=== PATIENT | female | born 1970 | race Caucasian/White ===

== ENCOUNTER → 2019-08-28 | Outpatient (CLI) | payer BC | END | disposition home or self-care (01) | LOC: LABWHC1 13:24 | PROVIDERS: ATTEND Emergency Medicine | DX: Z20.828 Contact with and (suspected) exposure to other viral communicable diseases (principal) | CPT/HCPCS: U0003; C9803 ==

== ENCOUNTER → 2021-11-22 | Outpatient (CLI) | payer BC ==
--- NOTE | 2021-11-23 18:58 | MM ---
Reason for Exam: Screening (asymptomatic). Last mammogram was performed 6 year(s) and 0 month(s) ago. Patient History: Menarche at age 11. First Full-Term at age 20. Left ovary removed at age 32. Right ovary removed at age 32. Hysterectomy at age 32. Postmenopausal. Other cancer, age 21. Estrogen for 3 months from age 32 until age 32. Risk Values: Silvana 5 year model risk: 0.9%. NCI Lifetime model risk: 7.8%. Prior Study Comparison: 12/07/2006 Bilateral Screening Mammogram, [facility]. 11/24/2015 Bilateral Screening Mammogram, [facility]. Tissue Density: There are scattered fibroglandular densities. Findings: Analyzed By CAD. There is no suspicious group of microcalcifications or new suspicious mass in either breast. Overall Assessment: Negative, BI-RAD 1 Management: Screening Mammogram of both breasts in 1 year. 1. Patient should continue monthly self breast exams. 2. A clinical breast exam by your physician is recommended on an annual basis. 3. This exam should not preclude additional follow-up of suspicious palpable abnormalities. Electronically signed and approved by: Gene Hill M.D. Radiologist
--- NOTE | 2021-11-23 18:58 | MM ---
Reason for Exam: Screening (asymptomatic). Last mammogram was performed 6 year(s) and 0 month(s) ago. Patient History: Menarche at age 11. First Full-Term at age 20. Left ovary removed at age 32. Right ovary removed at age 32. Hysterectomy at age 32. Postmenopausal. Other cancer, age 21. Estrogen for 3 months from age 32 until age 32. Risk Values: Silvana 5 year model risk: 0.9%. NCI Lifetime model risk: 7.8%. Prior Study Comparison: 12/07/2006 Bilateral Screening Mammogram, [facility]. 11/24/2015 Bilateral Screening Mammogram, [facility]. Tissue Density: There are scattered fibroglandular densities. Findings: Analyzed By CAD. There is no suspicious group of microcalcifications or new suspicious mass in either breast. Overall Assessment: Negative, BI-RAD 1 Management: Screening Mammogram of both breasts in 1 year. 1. Patient should continue monthly self breast exams. 2. A clinical breast exam by your physician is recommended on an annual basis. 3. This exam should not preclude additional follow-up of suspicious palpable abnormalities. Electronically signed and approved by: Gene Hill M.D. Radiologist
== END | disposition home or self-care (01) ==
LOC: RADMAMWWP 16:17
PROVIDERS: ATTEND Family Medicine
DX: Z12.31 Encounter for screening mammogram for malignant neoplasm of breast (principal)
CPT/HCPCS: 77063; 77067

== ENCOUNTER 2022-01-05 06:16 | Day surgery (SDC) | payer BC ==
[2021-12-31 12:43] VITALS: BMI 25.7
[2022-01-05] MEDS ORDERED: LIDOCAINE 1% (10MG/ML) FOR IV START INTRADERMA PRN (06:57)
[2022-01-05 07:08] VITALS: TEMP 98.6
[2022-01-05] MEDS: LACTATED RINGERS 1,000 ML IV SCH ×2 (07:17→07:45)
[2022-01-05] MEDS ORDERED: PROPOFOL 10 MG/ML 20 ML VIAL IV ONE (07:47)
--- NOTE | 2022-01-05 08:16 | P.PCN ---
Date of Procedure: 01/05/22 Procedure(s) Performed: Brief history: Patient is a pleasant 51-year-old white female scheduled for an elective upper endoscopy as well as colonoscopy as a part of evaluation of epigastric pain and screening for colon cancer Procedure performed: Esophagogastroduodenoscopy with biopsy Colonoscopy with snare polypectomy Preoperative diagnosis: Chronic epigastric pain Screening for colon cancer Anesthesia: MAC Procedure: After informed consent was obtained from the patient was brought into the endoscopy unit and IV sedation was administered by anesthesia under continuous monitoring. Initially upper endoscopy was done. The Olympus GF 160 video endoscope was inserted inserted into the mouth and esophagus intubated without any difficulty and was gradually advanced into the stomach and duodenum and carefully examined. The bulb and second part of the duodenum appeared normal. The scope was then withdrawn into the stomach adequately insufflated with air and upon careful examination the antrum had patchy areas of erythema which was biopsied. Rest of the body, cardia and fundus appeared normal. The scope was then withdrawn into the esophagus. The GE junction was located at 40 cm to the incisors. It appeared regular with no erythema erosions or ulcerations. Small sliding type hiatal hernia noted. Rest of the esophagus appeared normal. Patient tolerated the procedure well. At this time the patient continued to remain sedation. Initial digital rectal examination was normal. Olympus CF 160 video colonoscope was then inserted into the rectum and gradually advanced to the cecum without any difficulty. Careful examination was performed as the scope was gradually being withdrawn. The prep was excellent. The cecum, we normal. In the ascending colon there was a 7 mm polyp that was removed by snare polypectomy. Rest of the ascending colon, transverse colon, descending colon, sigmoid colon and rectum appeared normal. Rectum there was a 3 mm, 5 mm 2 polyps removed by snare polypectomy. Retroflexion was performed in the rectum and no lesions were noted. Patient tolerated the procedure well. Impression: 1. Upper endoscopy revealed small sliding type hiatal hernia and mild antral gastritis 2. Colonoscopy revealed : 7 mm ascending colon polyp status post polypectomy 3 mm and 5 mm x 2 rectal polyp status post polypectomy Recommendations: Findings of this examination were discussed with the patient as well as her family. She was advised to follow with the biopsy results. Continue with omeprazole as needed and follow antireflux measures. Follow with the biopsy results. If the biopsy results when she can have a repeat colonoscopy in 5 years. Recommend repeat screening colonoscopy in 10 years..
[2022-01-05 08:48] VITALS: BP 119/71; PULSE 72; RESP 20
== END 2022-01-05 08:48 | disposition home or self-care (01) ==
LOC: ORWHC2ENDO 06:16
PROVIDERS: ATTEND Internal Medicine Gastroenterology
DX: K29.50 Unspecified chronic gastritis without bleeding (principal); K62.1 Rectal polyp; K21.00 Gastro-esophageal reflux disease with esophagitis, without bleeding; F17.210 Nicotine dependence, cigarettes, uncomplicated; Z90.710 Acquired absence of both cervix and uterus
CPT/HCPCS: 88305; 45385; 43239; J2704

== ENCOUNTER → 2022-11-23 | Outpatient (CLI) | payer BC ==
--- NOTE | 2022-11-24 09:15 | MM ---
Reason for Exam: Screening (asymptomatic). Last screening mammogram was performed 12 month(s) ago. Patient History: Menarche at age 11. First Full-Term at age 20. Left ovary removed at age 32. Right ovary removed at age 32. Hysterectomy at age 32. Postmenopausal. Other cancer, age 21. Estrogen for 3 months from age 32 until age 32. Risk Values: Silvana 5 year model risk: 1.0%. NCI Lifetime model risk: 7.7%. Prior Study Comparison: 12/07/2006 Bilateral Screening Mammogram, [facility]. 11/24/2015 Bilateral Screening Mammogram, [facility]. 11/22/2021 Bilateral MG 3D screening mammo w/cad, [facility]. Tissue Density: The breast tissue is almost entirely fat. Findings: Analyzed By CAD. There is no suspicious group of microcalcifications or new suspicious mass. Overall Assessment: Negative, BI-RAD 1 Management: Screening Mammogram of both breasts in [address] [facility] will attempt to contact patient to return for supplemental views and ultrasound if indicated. Patient should continue monthly self-breast exams. A clinical breast exam by your physician is recommended on an annual basis. This exam should not preclude additional follow-up of suspicious palpable abnormalities. Note on Silvana scores and lifetime risk: 1. A Silvana score greater than 3% is considered moderate risk. If this is the case, consider specialist referral to assess eligibility for a risk reducing agent. 2. If overall lifetime risk for the development of breast cancer is 20% or higher, the patient may qualify for future screening with alternating mammogram and breast MRI. Electronically signed and approved by: Stanley Chu DO
== END | disposition home or self-care (01) ==
LOC: RADMAMWWP 07:15
PROVIDERS: ATTEND Family Medicine
DX: Z12.31 Encounter for screening mammogram for malignant neoplasm of breast (principal); Z78.0 Asymptomatic menopausal state
CPT/HCPCS: 77063; 77067

== ENCOUNTER → 2023-06-02 | Outpatient (CLI) | payer BC ==
--- NOTE | 2023-06-03 07:38 | US ---
EXAMINATION TYPE: US groin LT DATE OF EXAM: 06/02/2023 COMPARISON: NONE CLINICAL INDICATION: Female, 52 years old with history of R22.42 LOCALIZED SWELLING, MASS AND LUMP, L EFT LOW; lump in left groin for years, patient states it gets larger but is not at time of exam, caus es pain TECHNIQUE: Soft tissue groin FINDINGS: 2.8 x 2.4cm possible fat containing herniation that did not protrude with valsalva IMPRESSION: 2.8 x 2.4 cm fat-containing mass in the left groin consistent with a fat-containing meghna ia. No bowel loops visualized.
== END | disposition home or self-care (01) ==
LOC: RADUSWWP 15:03
PROVIDERS: ATTEND Family Medicine
DX: R19.09 Other intra-abdominal and pelvic swelling, mass and lump (principal); R22.42 Localized swelling, mass and lump, left lower limb